=== PATIENT | female | born 1985 ===

== ENCOUNTER 2021-07-19 16:53 | Outpatient (REF) | payer OTHER, SELFPAY ==
[2021-07-19 21:48] LABS: Influenza A PCR NEGATIVE (Negative); Influenza B PCR NEGATIVE (Negative); Resp Syncy Virus RNA Qual PCR NEGATIVE (Negative); SARS COV2 PCR INHOUSE NEGATIVE (Negative)
== END 2021-07-19 16:54 | disposition home or self-care (01) ==
LOC: HO.LAB 16:53
PROVIDERS: Visit Provider Hospitalist
DX: J06.9 Acute upper respiratory infection, unspecified (principal); Z20.822 Contact with and (suspected) exposure to COVID-19
CPT/HCPCS: 0241U